=== PATIENT | female | born 1990 | race Caucasian/White ===

== ENCOUNTER 2018-04-30 02:21 | Inpatient (IN) ==
[2018-04-30 02:59] LABS: Apearance,Urine CLEAR (Clear); Bilirubin,Urine Negative (Negative); Blood, Urine Moderate mg/dL (Negative); Glucose,Urine (UA) Negative (Negative); Ketones,Urine 80 mg/dL (Negative); Nitrite,Urine Negative (Negative); Protein,Urine Negative; RBC,Urine 11 /HPF (0-4); Squamous Epithelial Cell,Urine Occasional /HPF (0-10); Urine Color Yellow (Yellow); Urine Specific Gravity 1.014 (1.001-1.035); Urine Urobilinogen < 2.0 EU/DL (0.2-1.0); WBC,Urine <1 /HPF (0-6)
[2018-04-30] MEDS ORDERED: ONDANSETRON 4 MG/2 ML VIAL IV PRN ×2 (03:42→12:03)
[2018-04-30] MEDS ORDERED: BUTORPHANOL 2 MG/ML VIAL IV PRN (03:42)
[2018-04-30 04:05] LABS: Basophils % 0.2 % (0.0-0.8); Eosinophils # 0.1 10*3/uL (0.0-0.87); Eosinophils % 0.5 % (0.00-10.9); Hematocrit 34.5 VOL% (35.7-47.0); Hemoglobin 11.6 GM/DL (12.0-16.0); Immature Granulocytes % 0.5 %; Immature Granulocytes Absolute 0.06 #; Lymphocytes # 2.7 10*3/uL (1.4-4.0); Lymphocytes % 20.8 % (21.3-54.2); Mean Corpuscular HGB Conc 33.6 GM/DL (32-36); Mean Corpuscular Hemoglobin 29 PG (27-34); Mean Corpuscular Volume 86.7 FL (87-102); Mean Platelet Volume 10.2 FL (9.6-12.0); Monocytes # 0.6 10*3/uL (0.11-0.8); Monocytes % 4.5 % (1.7-12.7); Neutrophils # 9.4 10*3/uL (1.4-7.4); Neutrophils % 73.5 % (38.7-73.9); Platelet Count 176 T/CUMM (130-400); Red Blood Count 3.98 MC/CUMM (3.8-5.5); Red Cell Distribution Width 12.6 % (9.3-17.3); White Blood Count 12.8 T/CUMM (4-12)
[2018-04-30] MEDS: LACTATED RINGERS 1,000 ML IV SCH ×2 (04:26→09:26)
[2018-04-30 04:36] LABS: Albumin 2.6 G/DL (3.4-5.0); Bilirubin,Total 0.4 MG/DL (0.2-1.0); Calcium 8.4 MG/DL (8.5-10.1); Osmolality,Calculated 275.7 MOS/KG (273-304); Potassium 3.9 MMOL/L (3.5-5.1); Total Protein 6.4 G/DL (6.4-8.3)
[2018-04-30] MEDS ORDERED: FAMOTIDINE 20 MG/2 ML VIAL IV ONE (05:02)
[2018-04-30] MEDS ORDERED: AMPICILLIN INJ 2,000 MG in SODIUM CHLORIDE 0.9% 100 ML IV ONE (05:11)
[2018-04-30] MEDS ORDERED: AMPICILLIN 2,000 MG VIAL ONE (05:12)
[2018-04-30] MEDS ORDERED: SODIUM CHLORIDE 0.9% 100 ML IV ONE (05:13)
[2018-04-30] MEDS ORDERED: OXYTOCIN/D5LR 20 UNIT/1,000 ML PREMIX IV SCH (07:00)
[2018-04-30] MEDS ORDERED: OXYTOCIN/LR 20 UNIT/1,000 ML BAG IV ONE ×2 (07:40→12:03)
[2018-04-30] MEDS ORDERED: OXYTOCIN/LR 20 UNIT/1,000 ML BAG IV SCH (08:00)
[2018-04-30] MEDS ORDERED: CITRIC ACID/SODIUM CITRATE 30 ML UDCUP PO ONE (08:26)
[2018-04-30] MEDS ORDERED: ePHEDrine 50 MG/ML AMP IV ONE (08:29)
[2018-04-30] MEDS ORDERED: fentaNYL 2 MCG/ROPIV 0.2% EPID 150 ML EPIDURAL SCH (08:30)
[2018-04-30] MEDS ORDERED: AMPICILLIN INJ 1,000 MG in SODIUM CHLORIDE 0.9% 100 ML IV SCH (09:30)
[2018-04-30] MEDS ORDERED: LANOLIN 50% CREAM 0.3 OZ TUBE TOP PRN (12:03)
[2018-04-30] MEDS ORDERED: WITCH HAZEL PADS 100/JAR TOP PRN (12:03)
[2018-04-30] MEDS ORDERED: MEASLES/MUMPS/RUBELLA VACCINE 0.5 ML VIAL SUBCUT ONE (12:03)
[2018-04-30] MEDS ORDERED: RHO(D) IMMUNE GLOBULIN 300 MCG SYRINGE IM ONE (12:03)
[2018-04-30] MEDS ORDERED: DIPH/TET/ACEL PERT BOOSTER VACCINE 0.5 ML VIAL IM ONE (12:03)
[2018-04-30] MEDS ORDERED: BISACODYL 10 MG SUPP RECTAL PRN (12:03)
[2018-04-30] MEDS ORDERED: oxyCODONE/ACETAMINOPHEN 5-325 MG TABLET PO PRN ×2 (12:03)
[2018-04-30] MEDS ORDERED: ACETAMINOPHEN 325 MG TABLET PO PRN (12:03)
[2018-04-30] MEDS ORDERED: HYDROCORTISONE 2.5% RECTAL CREAM 30 GM TUBE TOP PRN (12:03)
[2018-04-30] MEDS ORDERED: BENZOCAINE 20%/MENTHOL 0.5% SPRAY 56 GM CAN TOP PRN (12:03)
[2018-04-30] MEDS: DOCUSATE SODIUM 100 MG CAPSULE PO SCH (21:56)
[2018-05-01 06:16] LABS: Basophils % 0.3 % (0.0-0.8); Eosinophils # 0.1 10*3/uL (0.0-0.87); Eosinophils % 0.9 % (0.00-10.9); Hematocrit 31.2 VOL% (35.7-47.0); Hemoglobin 10.6 GM/DL (12.0-16.0); Immature Granulocytes % 0.5 %; Immature Granulocytes Absolute 0.06 #; Lymphocytes # 2.9 10*3/uL (1.4-4.0); Lymphocytes % 22.6 % (21.3-54.2); Mean Corpuscular Hemoglobin 29 PG (27-34); Mean Corpuscular Volume 86.7 FL (87-102); Mean Platelet Volume 10.3 FL (9.6-12.0); Monocytes # 0.6 10*3/uL (0.11-0.8); Monocytes % 4.3 % (1.7-12.7); Neutrophils % 71.4 % (38.7-73.9); Platelet Count 163 T/CUMM (130-400); Red Cell Distribution Width 12.7 % (9.3-17.3); White Blood Count 12.7 T/CUMM (4-12)
[2018-05-01] MEDS: DOCUSATE SODIUM 100 MG CAPSULE PO SCH ×2 (08:51→22:22)
[2018-05-01] MEDS: IBUPROFEN 800 MG TABLET PO PRN (08:51)
[2018-05-02 08:17] VITALS: BP 154/81
[2018-05-02] MEDS: IBUPROFEN 800 MG TABLET PO PRN (08:30)
[2018-05-02] MEDS: DOCUSATE SODIUM 100 MG CAPSULE PO SCH (08:30)
== END 2018-05-02 11:55 | disposition home or self-care (01) | DRG 560 ==
LOC: N.LDOUT 02:21 → N.LD 03:42 → N.OB 14:50
PROVIDERS: ADMIT Obstetrics & Gynecology; ATTEND Obstetrics & Gynecology